=== PATIENT | female | born 1940 | race Caucasian/White ===

== ENCOUNTER 2016-09-26 17:18 | Inpatient (IN) | payer OTHER ==
[~2016-09-26] VITALS: Ht 167.6 cm; Wt 45.1 kg
--- NOTE | 2016-09-27 03:26 | NUR ---
2200: PTS TEMP 101.0, BUT PT HAD HEAT ON 80 DEGREES AND HAD 4 BLANKETS ON HER. TEMPATURE TURNED TO 72 AND ALL BLANKETS REMOVED. WILL RECHECK TEMP IN 1 HOUR.
--- NOTE | 2016-09-27 03:28 | NUR ---
2300: PTS TEMP 99.0.
== END 2016-10-04 08:00 | disposition swing bed (61) | DRG 190 ==
LOC: MED 17:18
PROVIDERS: ADMIT Internal Medicine
DX: J44.0 Chronic obstructive pulmonary disease with (acute) lower respiratory infection (principal); J14 Pneumonia due to Hemophilus influenzae; I47.1 Supraventricular tachycardia; J44.1 Chronic obstructive pulmonary disease with (acute) exacerbation; E03.9 Hypothyroidism, unspecified; E87.6 Hypokalemia; J45.909 Unspecified asthma, uncomplicated; I25.10 Atherosclerotic heart disease of native coronary artery without angina pectoris; E53.8 Deficiency of other specified B group vitamins; G89.29 Other chronic pain; M54.5 Low back pain; R27.0 Ataxia, unspecified; L29.9 Pruritus, unspecified; F32.9 Major depressive disorder, single episode, unspecified; H92.02 Otalgia, left ear; T37.8X5A Adverse effect of other specified systemic anti-infectives and antiparasitics, initial encounter; I10 Essential (primary) hypertension; Z90.49 Acquired absence of other specified parts of digestive tract; Z86.73 Personal history of transient ischemic attack (TIA), and cerebral infarction without residual deficits; Z99.81 Dependence on supplemental oxygen; Z79.899 Other long term (current) drug therapy; Z88.5 Allergy status to narcotic agent; Z88.8 Allergy status to other drugs, medicaments and biological substances; F17.210 Nicotine dependence, cigarettes, uncomplicated; Z80.0 Family history of malignant neoplasm of digestive organs; Z82.49 Family history of ischemic heart disease and other diseases of the circulatory system; Z82.5 Family history of asthma and other chronic lower respiratory diseases
CPT/HCPCS: 97161-GP; J1650

== ENCOUNTER 2016-10-04 08:01 | Inpatient (IN) | payer OTHER ==
[~2016-10-04] VITALS: Ht 167.6 cm; Wt 45.1 kg
== END 2016-10-09 14:16 | disposition home or self-care (01) | DRG 190 ==
LOC: SWI 08:01
PROVIDERS: ADMIT Internal Medicine
DX: J44.0 Chronic obstructive pulmonary disease with (acute) lower respiratory infection (principal); J14 Pneumonia due to Hemophilus influenzae; J44.1 Chronic obstructive pulmonary disease with (acute) exacerbation; Z99.81 Dependence on supplemental oxygen; R27.0 Ataxia, unspecified; Z86.73 Personal history of transient ischemic attack (TIA), and cerebral infarction without residual deficits; F17.210 Nicotine dependence, cigarettes, uncomplicated; J45.909 Unspecified asthma, uncomplicated; E03.9 Hypothyroidism, unspecified; M79.2 Neuralgia and neuritis, unspecified; I25.10 Atherosclerotic heart disease of native coronary artery without angina pectoris; E53.8 Deficiency of other specified B group vitamins; G89.29 Other chronic pain; M54.5 Low back pain; F32.9 Major depressive disorder, single episode, unspecified; Z90.49 Acquired absence of other specified parts of digestive tract; Z79.899 Other long term (current) drug therapy; Z88.5 Allergy status to narcotic agent; Z88.8 Allergy status to other drugs, medicaments and biological substances; Z80.0 Family history of malignant neoplasm of digestive organs; Z82.5 Family history of asthma and other chronic lower respiratory diseases; Z82.49 Family history of ischemic heart disease and other diseases of the circulatory system
CPT/HCPCS: 97164-GP; J0696; J1650